=== PATIENT | female | born 1975 | race Caucasian/White ===

== ENCOUNTER 2019-10-05 15:44 | Emergency (ER) | payer BC ==
[2019-10-05] MEDS ORDERED: TETANUS/DIPHTHERIA/PERTUSSIS 0.5 ML SYRINGE IM ONE (16:53)
[2019-10-05] MEDS ORDERED: cefTRIAXone 1 GM VIAL IM STA (16:53)
[2019-10-05] MEDS ORDERED: LIDOCAINE 1% 2 ML VIAL MC ONE (16:53)
--- NOTE | 2019-10-05 16:56 | ED Physician Documentation ---
PD HPI UPPER EXT INJURY - Stated complaint Stated Complaint: L WRIST CAT BITE - Chief complaint Chief Complaint: Wound - History obtained from History obtained from: Patient - History of Present Illness Location: Left, Wrist Type of injury: Other (bite) Where injury occurred: Home Timing - onset: Last night Timing - duration: Hours Timing - details: Abrupt onset, Still present Improved by: Rest Worsened by: Moving, Palpating Associated symptoms: Swelling, Discolored Contributing factors: No: Anticoagulated Similar symptoms before: Has not had sx before Recently seen: Not recently seen - Additonal information Additional information: 43-year-old female who has 6 cats awoke this morning with a puncture wound to her left wrist. She is fairly certain which cat did this. She has had some increased swelling and redness to the wrist and some pain associated with this.43-year-old female who has 6 cats awoke this morning with a puncture wound to her left wrist. She is fairly certain which cat did this. She has had some increased swelling and redness to the wrist and some pain associated with this. Review of Systems Constitutional: reports: Myalgias. denies: Fever, Chills Respiratory: denies: Cough GI: denies: Vomiting Skin: reports: Rash, Bite / sting Musculoskeletal: reports: Extremity pain. 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 : None HEENT: None Psych: Depression Musculoskeletal: None Derm: None - Past Surgical History Past Surgical History: Yes - Present Medications Home Medications: Ambulatory Orders Medication Instructions Recorded Confirmed Amox/Clav 875/125 [Augmentin] 1 each PO Q12H #20 tablet 10/05/19 - Allergies Allergies/Adverse Reactions: Allergies Allergy/AdvReac Type Severity Reaction Status Date / Time No Known Drug Allergies Allergy Verified 10/05/19 15:50 - Social History Does the pt smoke?: Yes Smoking Status: Current every day smoker Does the pt drink ETOH?: Yes Does the pt have substance abuse?: No - Immunizations Immunizations are current?: Yes - POLST Patient has POLST: No PD ED PE NORMAL - Vitals Vital signs reviewed: Yes (hypertensive) - General General: No acute distress, Well developed/nourished - HEENT HEENT: Atraumatic, PERRL, EOMI - Respiratory Respiratory: No respiratory distress - Derm Derm: Normal color, Warm and dry - Extremities Extremities: Other (over the dorsal surface of the left wrist radially there are 2 puncture wounds consistent with a bite baron from a cat. There is surrounding erythema about 2.5cm and there is the beginnings of a lymphangitic streak. ) - Neuro Neuro: Alert and oriented X 3, search engineer 2-12 intact, No motor deficit, No sensory deficit, Normal speech Eye Opening: Spontaneous Motor: Obeys Commands Verbal: Oriented GCS Score: 15 - Psych Psych: Normal mood, Normal affect Results - Vitals Vitals: Vital Signs - 24 hr 10/05/19 15:50 Temperature 36.8 C Heart Rate 81 Respiratory 14 Rate Blood Pressure 156/96 H O2 Saturation 99 Oxygen O2 Source Room air PD MEDICAL DECISION MAKING - ED course Complexity details: considered differential, d/w patient ED course: 43-year-old female with a cat bite to the left wrist already has evidence of cellulitis and lymphangitis associated with the bite. She is administered a dose of Rocephin IM and we will place her on some Augmentin. She is given a tetanus booster. Departure - Departure Disposition: 01 Home, Self Care Clinical Impression: Cat bite of left wrist with infection Qualifiers: Encounter type: initial encounter Qualified Code(s): S61.552A - Open bite of left wrist, initial encounter; L08.9 - Local infection of the skin and subcutaneous tissue, unspecified; W55.01XA - Bitten by cat, initial encounter Instructions: ED Bite Cat, ED Infec Skin Cellulitis Follow-Up: Ira Simpson PA [Primary Care Provider] - Prescriptions: Amox/Clav 875/125 [Augmentin] 1 each PO Q12H #20 tablet
[2019-10-05 17:26] VITALS: BP 138/92
== END 2019-10-05 17:26 | disposition home or self-care (01) ==
LOC: ED 15:44
DX: S61.552A Open bite of left wrist, initial encounter (principal); L08.9 Local infection of the skin and subcutaneous tissue, unspecified; W55.01XA Bitten by cat, initial encounter; Y93.84 Activity, sleeping; Y92.009 Unspecified place in unspecified non-institutional (private) residence as the place of occurrence of the external cause; I10 Essential (primary) hypertension; F17.200 Nicotine dependence, unspecified, uncomplicated
CPT/HCPCS: 90471; 96372; 99283; 99284

== ENCOUNTER 2021-05-18 08:00 | Outpatient (CLI) | payer BC | END 2021-05-18 23:59 | LOC: LAB.N 08:00 | PROVIDERS: ATTEND Nurse Practitioner | DX: R05 Cough (principal); Z20.822 Contact with and (suspected) exposure to COVID-19 ==